=== PATIENT | male | born 1995 | race Caucasian/White ===

== ENCOUNTER 2021-05-13 14:15 | Emergency (ER) | payer OTHER ==
[2021-05-13 14:50] LABS: Absolute Lymphocytes (CBC) 2.4 K/uL (0.7-4.9); Hematocrit 41.9 % (39.6-49.0); Lymphocytes % 40.3 % (15.3-44.8); MPV 8.5 fL (7.6-11.3); RBC Red Blood Cell Count 4.63 M/uL (4.33-5.43)
[2021-05-13] MEDS ORDERED: ONDANSETRON 4 MG/2 ML VIAL ONE (14:53)
[2021-05-13] MEDS ORDERED: TETANUS & DIPHTHERIA TOX,ADULT 0.5 ML VIAL ONE (14:53)
[2021-05-13] MEDS ORDERED: NA CHLORIDE 0.9% 1,000 ML ONE (14:53)
[2021-05-13] MEDS ORDERED: MORPHINE 4 MG/ML SYR ONE (14:59)
[2021-05-13 15:07] LABS: ALT/SGPT 28 U/L (12-78); AST/SGOT 15 U/L (15-37); Albumin 4.1 g/dL (3.4-5.0); Alkaline Phosphatase 93 U/L (45-117); BUN Blood Urea Nitrogen 12 mg/dL (7-18); Bicarbonate 28 mmol/L (21-32); Bilirubin Total 1.2 mg/dL (0.2-1.0); Creatine Phosphokinase 212 U/L (39-308); Glucose Level 90 mg/dL (74-106); Potassium 3.6 mmol/L (3.5-5.1); Protein, Total 7.3 g/dL (6.4-8.2); Sodium Level 140 mmol/L (136-145)
[2021-05-13] MEDS ORDERED: MUPIROCIN 2% OINT 22GM TUBE TOP ONE (15:14)
--- NOTE | 2021-05-13 15:27 | RAD REPORT ---
EXAM DESCRIPTION: RAD - Hand Right 3 View - 05/13/2021 3:08 pm CLINICAL HISTORY: Right hand pain FINDINGS: No fracture or dislocation is seen. No bone or joint abnormality noted
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
[2021-05-13 17:31] VITALS: TEMP 99.1
[2021-05-13 17:34] VITALS: BP 123/69; O2SAT 99
--- NOTE | 2021-05-14 12:46 | EKG ---
Test Date: 2021-05-13 Test Time: 14:45:14 [id number] Application Developer: MICHAEL MEASUREMENT RESULTS: Intervals: Rate: 58 MD: 138 QRSD: 92 QT: 418 QTc: 410 [place]: P: 57 MD: 138 QRS: 62 T: 47 INTERPRETIVE STATEMENTS: Sinus bradycardia Otherwise normal ECG No previous ECG available for comparison Electronically Signed On 05-14-21 12:44:53 WARRANTY COORDINATOR by Yazan Perez
== END 2021-05-13 17:26 | disposition home or self-care (01) ==
LOC: ER 14:15
DX: T23.291A Burn of second degree of multiple sites of right wrist and hand, initial encounter (principal); X19.XXXA Contact with other heat and hot substances, initial encounter; Z23 Encounter for immunization
CPT/HCPCS: 96361; 93005; 85025; 36415; 82550; 80053; 73130; 90471; 90714; 96375; 96374; 99285; J7030; J2405